=== PATIENT | male | born 1975 | race Caucasian/White ===

== ENCOUNTER 2017-03-18 22:18 | Emergency (ER) | payer BC, OTHER ==
[2017-03-18] MEDS ORDERED: NITROGLYCERIN 2% OINTMENT 1 GM PACKET TP ONE (22:24)
--- NOTE | 2017-03-18 22:27 | ER Document Report ---
ED Cardiac - General Chief Complaint: Chest Pain Stated Complaint: CHEST PAIN Time Seen by Provider: 03/18/17 22:23 Mode of Arrival: Stretcher Information source: Patient Notes: 42 years old male with no significant past medical history except smoking, no family history of any coronary artery disease, prior to arrival developed substernal chest pain 6/10 in intensity. Which was radiating to the back, associated with nausea no vomiting. Denies any left arm numbness tingling sensation palpitation or diaphoresis. Denies any shortness of breath. He called the EMS EMS gave sublingual nitroglycerin by the time he arrived to the ED pain was completely subsided. TRAVEL OUTSIDE OF THE [place] IN LAST 30 DAYS: No - Related Data Allergies/Adverse Reactions: No Known Allergies Allergy (Verified 03/18/17 23:27) Home Medications: Current Home Medications No Home Medications 03/18/17 [History] Past Medical History - Social History Smoking Status: Smoker,Current Status Unk Family History: Reviewed & Not Pertinent Review of Systems - Review of Systems Notes: REVIEW OF SYSTEMS: CONSTITUTIONAL : Denies fever, chills, or sweats. Denies recent illness. EENT: Denies eye, ear, throat, or mouth pain or symptoms. Denies nasal or sinus congestion or discharge. Denies throat, tongue, or mouth swelling or difficulty swallowing. CARDIOVASCULAR: D Hospital history of complain RESPIRATORY: Denies cough, cold, or chest congestion. Denies shortness of breath, difficulty breathing, or wheezing. GASTROINTESTINAL: Denies abdominal pain or distention. Denies nausea, vomiting , or diarrhea. Denies blood in vomitus, stools, or per rectum. Denies black, tarry stools. Denies constipation. GENITOURINARY: Denies difficulty urinating, painful urination, burning, frequency, blood in urine, or discharge. MUSCULOSKELETAL: Denies back or neck pain or stiffness. Denies joint pain or swelling. SKIN: Denies rash, lesions or sores. HEMATOLOGIC : Denies easy bruising or bleeding. LYMPHATIC: Denies swollen, enlarged glands. NEUROLOGICAL: Denies confusion or altered mental status. Denies passing out or loss of consciousness. Denies dizziness or lightheadedness. Denies headache. Denies weakness or paralysis or loss of use of either side. Denies problems with gait or speech. Denies sensory loss, numbness, or tingling. Denies seizures. PSYCHIATRIC: Denies anxiety or stress. Denies depression, suicidal ideation, or homicidal ideation. ALL OTHER SYSTEMS REVIEWED AND NEGATIVE. Dictation was performed using [employer] voice recognition software PHYSICAL EXAMINATION: GENERAL: Well-appearing, well-nourished and in no acute distress. HEAD: Atraumatic, normocephalic. EYES: Pupils equal round and reactive to light, extraocular movements intact, sclera anicteric, conjunctiva are normal. ENT: Nares patent, oropharynx clear without exudates. Moist mucous membranes. NECK: Normal range of motion, supple without lymphadenopathy LUNGS: Breath sounds clear to auscultation bilaterally and equal. No wheezes rales or rhonchi. HEART: Regular rate and rhythm without murmurs ABDOMEN: Soft, nontender, nondistended abdomen. No guarding, no rebound. No masses appreciated. Musculoskeletal: Normal range of motion, no pitting or edema. No cyanosis. NEUROLOGICAL: Cranial nerves grossly intact. Normal speech, normal gait. Normal sensory, motor exams PSYCH: Normal mood, normal affect. SKIN: Warm, Dry, normal turgor, no rashes or lesions noted. Physical Exam - Vital signs Vitals: Temp 98.7 F 03/18/17 22:25 Course - Re-evaluation Re-evalutation: 03/18/17 2 Troponin came back positive with 0.413, [facility] called and waiting for the transfer arrangements. He was given IV heparin 4000 unit. 03/18/17 23:47 Case was discussed with [facility] accepted by [employer] information clerk, and arrangements for transfer is made. - Vital Signs Vital signs: Temp Pulse Resp BP Pulse Ox 98.4 F 15 143/85 H 95 03/19/17 00:45 03/19/17 00:47 03/19/17 00:47 03/19/17 00:47 - Laboratory Result Diagrams: 03/18/17 22:34 03/18/17 22:34 Laboratory results interpreted by me: 03/18/17 22:34 Creatine Kinase 182 H - Diagnostic Test Radiology reviewed: Reports reviewed - No acute finding - EKG Interpretation by Me EKG shows normal: Sinus rhythm - Sinus rhythm at rate of 85 bpm, normal axis no acute ST elevation ST depression T-wave inversion noted normal cardiogram Critical Care Note - Critical Care Note Total time excluding time spent on procedures (mins): 60 Comments: Review of lab EKG chest x-ray, arrangements made to transfer to a tertiary hospital, discussed with [employer] information clerk. Discharge - Discharge Clinical Impression: Non-STEMI (non-ST elevated myocardial infarction) Condition: Poor Disposition: [facility]
[2017-03-18 22:52] LABS: ABSOLUTE BASOPHILS # (AUTO) 0.1 10^3/uL (0.0-0.2); ABSOLUTE EOSINOPHILS # (AUTO) 0.1 10^3/uL (0.0-0.6); ABSOLUTE LYMPHOCYTES (AUTO) 2.5 10^3/uL (0.5-4.7); ABSOLUTE MONOCYTES (AUTO) 0.5 10^3/uL (0.1-1.4); ABSOLUTE NEUT (AUTO) 6.5 10^3/uL (1.7-8.2); BASOPHILS % (AUTO) 1.1 % (0-2); EOSINOPHILS % (AUTO) 0.9 % (0-6); HEMATOCRIT 47.2 % (37.9-51.0); HEMOGLOBIN 16.5 g/dL (13.5-17.0); HGB HCT DIFFERENCE 2.3; LYMPHOCYTES % (AUTO) 25.6 % (13-45); MEAN CORPUSCULAR HEMOGLOBIN 30.9 pg (27.0-33.4); MEAN CORPUSCULAR VOLUME 88 fl (80-97); MONOCYTES % (AUTO) 5.4 % (3-13); RED BLOOD COUNT 5.35 10^6/uL (4.35-5.55); RED CELL DISTRIBUTION WIDTH 13.2 % (11.5-14.0); WHITE BLOOD COUNT 9.7 10^3/uL (4.0-10.5)
[2017-03-18 23:05] LABS: APPEARANCE,URINE CLEAR; BILIRUBIN,URINE NEGATIVE (NEGATIVE); GLUCOSE, URINE NEGATIVE (NEGATIVE); KETONES,URINE NEGATIVE (NEGATIVE); LEUKOCYTE ESTERASE,URINE NEGATIVE (NEGATIVE); NITRITE,URINE NEGATIVE (NEGATIVE); PROTEIN,URINE NEGATIVE (NEGATIVE); URINE SPECIFIC GRAVITY 1.014; UROBILINOGEN,URINE NEGATIVE mg/dL (<2.0)
[2017-03-18 23:12] LABS: ALANINE AMINOTRANSFERASE 60 U/L (21-72); ALBUMIN 4.7 g/dL (3.5-5.0); ALKALINE PHOSPHATASE 94 U/L (38-126); ANION GAP 13 (5-19); ASPARTATE AMINO TRANSFERASE 33 U/L (17-59); BILIRUBIN,DIRECT 0.2 mg/dL (0.0-0.4); BILIRUBIN,TOTAL 0.2 mg/dL (0.2-1.3); BLOOD UREA NITROGEN 18 mg/dL (7-20); CARBON DIOXIDE 22 mmol/L (22-30); CHLORIDE 107 mmol/L (98-107); CREATINE KINASE 182 U/L (55-170); CREATININE RESULT 0.85 mg/dL (0.52-1.25); GLUCOSE 102 mg/dL (75-110); POTASSIUM 4.3 mmol/L (3.6-5.0); SODIUM 141.7 mmol/L (137-145); TOTAL PROTEIN 7.9 g/dL (6.3-8.2)
--- NOTE | 2017-03-18 23:12 | RADIOLOGY REPORT (SQ) ---
EXAM DESCRIPTION: CHEST SINGLE VIEW COMPLETED DATE/TIME: 03/18/2017 11:03 pm REASON FOR STUDY: CP COMPARISON: None. EXAM PARAMETERS: NUMBER OF VIEWS: One view. TECHNIQUE: Single frontal radiographic view of the chest acquired. RADIATION DOSE: NA LIMITATIONS: None. FINDINGS: LUNGS AND PLEURA: No opacities, masses or pneumothorax. No pleural effusion. MEDIASTINUM AND HILAR STRUCTURES: No masses. Contour normal. HEART AND VASCULAR STRUCTURES: Heart normal in size. Normal vasculature. BONES: No acute findings. HARDWARE: None in the chest. OTHER: No other significant finding. IMPRESSION: NO ACUTE RADIOGRAPHIC FINDING IN THE CHEST. TECHNICAL DOCUMENTATION: JOB ID: [id number] [employer]- All Rights Reserved
[2017-03-18 23:23] LABS: CREATINE KINASE MB 2.71 ng/mL (<4.55)
[2017-03-18 23:27] LABS: TROPONIN I 0.413 ng/mL
[2017-03-18] MEDS ORDERED: HEPARIN SOD (PORCINE) 1,000 UNIT/ML 10 ML VIAL IV ONE ×2 (23:32→23:36)
[2017-03-18] MEDS ORDERED: HEPARIN SODIUM,PORCINE/D5W 25,000 UNIT/250 ML RTUINJ IV PRN (23:36)
[2017-03-18 23:58] LABS: PROTHROMBIN TIME 12.3 SEC (11.4-15.4)
--- NOTE | 2017-03-18 23:58 | EKG REPORT ---
SEVERITY:- NORMAL ECG - SINUS RHYTHM : Confirmed by: Josh Pantoja 18-Mar-2017 23:58:10
[2017-03-18 23:59] LABS: PARTIAL THROMBOPLASTIN TIME 32.6 SEC (23.5-35.8)
[2017-03-19 00:56] VITALS: BP 143/85
[2017-03-19] MEDS ORDERED: HEPARIN SOD (PORCINE) 1,000 UNIT/ML 10 ML VIAL IV PRN (02:37)
== END 2017-03-19 01:12 | disposition short-term general hospital (02) ==
LOC: ER 22:18
DX: I21.4 Non-ST elevation (NSTEMI) myocardial infarction (principal); R07.89 Other chest pain; R11.0 Nausea; Z87.891 Personal history of nicotine dependence
CPT/HCPCS: 93005; 99291; 96365; 36415; 82553; 82550; 85025; 85610; 85730; 80053; 81001; 84484; 71010; 93010; J1644 ×2

== ENCOUNTER 2019-11-03 08:36 | Emergency (ER) | payer OTHER ==
[2019-11-03 09:58] LABS: ABSOLUTE BASOPHILS # (AUTO) 0.1 10^3/uL (0.0-0.2); ABSOLUTE EOSINOPHILS # (AUTO) 0.1 10^3/uL (0.0-0.6); ABSOLUTE LYMPHOCYTES (AUTO) 1.9 10^3/uL (0.5-4.7); ABSOLUTE MONOCYTES (AUTO) 0.4 10^3/uL (0.1-1.4); ABSOLUTE NEUT (AUTO) 2.8 10^3/uL (1.7-8.2); BASOPHILS % (AUTO) 1.2 % (0-2); EOSINOPHILS % (AUTO) 1.5 % (0-6); HEMATOCRIT 43.9 % (37.9-51.0); HEMOGLOBIN 15.5 g/dL (13.5-17.0); LYMPHOCYTES % (AUTO) 35.5 % (13-45); MEAN CORPUSCULAR HEMOGLOBIN 31.4 pg (27.0-33.4); MEAN CORPUSCULAR HGB CONC 35.2 g/dL (32.0-36.0); MEAN CORPUSCULAR VOLUME 89 fl (80-97); MONOCYTES % (AUTO) 8.1 % (3-13); PLATELET COUNT 166 10^3/uL (150-450); RED BLOOD COUNT 4.92 10^6/uL (4.35-5.55); SEGMENTED NEUTROPHILS % (AUTO) 53.7 % (42-78); TOTAL CELLS COUNTED % (AUTO) 100 %; WHITE BLOOD COUNT 5.3 10^3/uL (4.0-10.5)
[2019-11-03 10:20] LABS: ALBUMIN 4.6 g/dL (3.5-5.0); ALKALINE PHOSPHATASE 51 U/L (38-126); ANION GAP 7 (5-19); ASPARTATE AMINO TRANSFERASE 44 U/L (17-59); BILIRUBIN,TOTAL 0.5 mg/dL (0.2-1.3); BLOOD UREA NITROGEN 14 mg/dL (7-20); CALCIUM 9.2 mg/dL (8.4-10.2); CARBON DIOXIDE 25 mmol/L (22-30); CHLORIDE 106 mmol/L (98-107); CREATINE KINASE 124 U/L (55-170); GLUCOSE 113 mg/dL (75-110); POTASSIUM 4.2 mmol/L (3.6-5.0); TOTAL PROTEIN 7.6 g/dL (6.3-8.2)
--- NOTE | 2019-11-03 10:34 | ER Document Report ---
Entered by WESTLEY MONROY SCRIBE 11/03/19 0921 Acting as scribe for:ROSENDO TAFOYA MD ED Extremity Problem, Lower - General Chief Complaint: Leg Swelling Stated Complaint: LEG NUMBNESS Primary Care Provider: ANAY CHRISTINE PA-C [Primary Care Provider] - Follow up as needed Mode of Arrival: Ambulatory Information source: Patient Notes: This 44 year old male patient presents to the emergency department today with complaints of a three week history of left leg numbness, tingling, and calf pain. He reports that other people also say his left leg looks swollen but he can't see it. Patient did have a saphenous vein harvest from the LLE for CABG 03/18/2017. He takes 325 mg aspirin daily. TRAVEL OUTSIDE OF THE [place] IN LAST 30 DAYS: No - Related Data Allergies/Adverse Reactions: No Known Allergies Allergy (Verified 03/18/17 23:27) Past Medical History - General Information source: Patient - Social History Smoking Status: Former Smoker Cigarette use (# per day): No Frequency of alcohol use: daily Drug Abuse: None Lives with: Family Family History: Reviewed & Not Pertinent - Past Medical History Cardiac Medical History: Reports: Hx Coronary Artery Disease, Hx Heart Attack, Hx Hypercholesterolemia, Other - Left saphenous vein harvest Past Surgical History: Reports: Hx Cardiac Surgery - triple bypass Review of Systems - Review of Systems Constitutional: No symptoms reported EENT: No symptoms reported Cardiovascular: No symptoms reported Respiratory: No symptoms reported Gastrointestinal: No symptoms reported Genitourinary: No symptoms reported Male Genitourinary: No symptoms reported Musculoskeletal: See HPI, Muscle pain, Leg swelling - L Skin: No symptoms reported Hematologic/Lymphatic: No symptoms reported Neurological/Psychological: See HPI, Numbness - LLE, Tingling - LLE -: Yes All other systems reviewed and negative Physical Exam - Vital signs Vitals: Temp Pulse Resp BP Pulse Ox 98.5 F 85 16 140/83 H 98 11/03/19 08:40 11/03/19 08:40 11/03/19 08:40 11/03/19 08:40 11/03/19 08:40 - Notes Notes: Physical Exam: General: Alert, appears well. HEENT: Normocephalic. Atraumatic. PERRL. Extraocular movements intact. Oropharynx clear. Neck: Supple. Non-tender. Respiratory: No respiratory distress. Clear and equal breath sounds bilaterally. Cardiovascular: Regular rate and rhythm. Abdominal: Normal Inspection. Non-tender. No distension. Normal Bowel Sounds. Back: No gross abnormalities. Extremities: Moves all four extremities. Upper extremities: Normal inspection. Normal ROM. Lower extremities: Trace pitting edema over the anterior tibialis on the left with mild tenderness to palpation over the anterior tibialis muscle. There is increased tenderness to palpation to the left mid-calf. Neurological: Normal cognition. AAOx4. Normal speech. Psychological: Normal affect. Normal Mood. Skin: Warm. Dry. Normal color. Course - Re-evaluation Re-evalutation: 11/03/19 11:34 There is no DVT seen. There is thrombus in the superficial saphenous vein. The greater saphenous vein had been removed for his CABG. The d-dimer is undetectable, so the clot in the superficial saphenous vein is probably chronic. - Vital Signs Vital signs: Temp Pulse Resp BP Pulse Ox 98.5 F 85 16 140/83 H 98 11/03/19 08:40 11/03/19 08:40 11/03/19 08:40 11/03/19 08:40 11/03/19 08:40 - Laboratory Result Diagrams: 11/03/19 09:45 11/03/19 09:45 Laboratory results interpreted by me: 11/03/19 09:45 Glucose 113 H ALT 59 H - Diagnostic Test Radiology reviewed: Reports reviewed - Ultrasound shows the greater saphenous vein on the left is been removed, there is thrombus in the superficial saphenous vein. Discharge - Discharge Clinical Impression: Pain of left calf Condition: Stable Disposition: HOME, SELF-CARE Additional Instructions: Your venous Doppler ultrasound did not show a deep venous thrombosis or DVT. There was some clot in the superficial saphenous vein which is chronic and probably due to the removal of the greater saphenous for your bypass surgery. A D-dimer test was done which goes up in the face of clotting, and that test was undetectable which is further confirmation that you do not have an acute clot developing. Take ibuprofen 400 to 600 mg every 8 hours, and elevate the leg as much as possible. Limit walking for the next few days. Use moist heat to the painful part of your leg off and on for the next few days. Follow-up with your primary care provider if not improving. RETURN TO THE EMERGENCY ROOM IF ANY NEW OR WORSENING SYMPTOMS. Referrals: ANAY CHRISTINE PA-C [Primary Care Provider] - Follow up as needed I personally performed the services described in the documentation, reviewed and edited the documentation which was dictated to the scribe in my presence, and it accurately records my words and actions.
--- NOTE | 2019-11-03 11:28 | RADIOLOGY REPORT (SQ) ---
EXAM DESCRIPTION: VENOUS UNILATERAL LOWER IMAGES COMPLETED DATE/TIME: 11/03/2019 11:20 am REASON FOR STUDY: Left leg pain and swelling COMPARISON: None. TECHNIQUE: Dynamic and static wright scale and color images acquired of the left leg venous system. Se lected spectral images acquired with additional compression and augmentation maneuvers. The contralat eral common femoral vein and saphenofemoral junction were also imaged. Images stored on PACS. LIMITATIONS: None. FINDINGS: COMMON FEMORAL: Normal phasicity, compression and augmentation. No visualized echogenic ma terial on wright scale. No defects on color images. FEMORAL: Normal compression and augmentation. No visualized echogenic material on wright scale. No defe cts on color images. POPLITEAL: Normal compression, augmentation. No visualized echogenic material on wright scale. No defec ts on color images. CALF VESSELS: Normal compression, augmentation. No visualized echogenic material on wright scale. No de fects on color images. GSV and SSV: The GSV has been surgically removed. There is thrombus in the SSV. ANY DEEP VENOUS INSUFFICIENCY: No. ANY EVIDENCE OF POPLITEAL CYST: No. OTHER: No other significant finding. CONTRALATERAL COMMON FEMORAL VEIN AND SAPHENOFEMORAL JUNCTION: Normal phasicity, compression and augmentation. No visualized echogenic material on wright scale. No de fects on color images. IMPRESSION: THROMBUS IN THE SSV. NO EVIDENCE DVT IN THE LEFT LEG. TECHNICAL DOCUMENTATION: JOB ID: [id number] [employer]- All Rights Reserved Reading location - IP/workstation name: [email or web address]
[2019-11-03 11:51] VITALS: BP 130/84
== END 2019-11-03 11:50 | disposition home or self-care (01) ==
LOC: ER 08:36
DX: M79.662 Pain in left lower leg (principal); M79.89 Other specified soft tissue disorders; E78.00 Pure hypercholesterolemia, unspecified; I25.2 Old myocardial infarction
CPT/HCPCS: 36415; 80053; 82550; 85025; 85379; 93971; 99283